=== PATIENT | male | born 1970 | race Caucasian/White ===

== ENCOUNTER 2020-01-23 16:29 | Emergency (ER) | payer SELFPAY ==
[2020-01-23 16:39] VITALS: BP 141/90; PULSE 100; RESP 16; TEMP 37.3; O2SAT 100
[2020-01-23] MEDS: AZITHROMYCIN 250 MG TABLET 1000 MG PO (17:08)
[2020-01-23] MEDS: cefTRIAXone 250 MG VIAL IM (17:09)
[2020-01-23] MEDS: LIDOCAINE HCL 1% LOCAL INJ 20 ML VIAL IM (17:09)
--- NOTE | 2020-01-23 17:26 | ED.MALEGU ---
HPI - Male Genitourinary General Chief complaint: Urogenital-Male Stated complaint: std test Time Seen by Provider: 01/23/20 16:44 Source: patient and RN notes reviewed Mode of arrival: ambulatory Limitations: no limitations History of Present Illness HPI Narrative: Patient presents today complaining of yellow/white penile discharge that he noted this morning, as well as dysuria. Denies any additional symptoms to include urgency, frequency, penile pain or swelling, scrotal pain or swelling, testicular pain or swelling. Patient has 1 female sexual partner. He had unprotected intercourse last 2 days ago. He is requesting STD testing today. He had gonorrhea diagnosed in October 2018 here at [facility], and states he contracted the gonorrhea from the same partner. MD Complaint: penile discharge Related Data Allergies Allergy/AdvReac Type Severity Reaction Status Date / Time No Known Allergies Allergy Verified 01/23/20 16:37 Review of Systems Review of Systems: Narrative: CONSTITUTIONAL: Denies body aches, fever, chills, or sweats. EYES: Denies visual changes, redness, or discharge. ENT: Denies rhinorrhea, congestion, sore throat, or otalgia. CARDIOVASCULAR: Denies chest pain, palpitations, or edema. RESPIRATORY: Denies cough or dyspnea. GASTROINTESTINAL: Denies abdominal pain, nausea, vomiting, or diarrhea. GENITOURINARY: Denies hematuria. + Dysuria, penile discharge SKIN: Denies rash, itching, or wounds. MUSCULOSKELETAL: Denies back pain, joint pain, or myalgia. NEUROLOGIC: Denies headache, numbness, tingling, or weakness. PSYCH: Denies depression or anxiety. PMFSH Comments At time of signature, I have reviewed and agree with nursing past medical, surgical, social and family history unless otherwise noted. Please see nursing chart for further information. There is no relevant family history pertinent to the presenting complaint Exam Narrative: Exam Narrative: GENERAL: Well-appearing, well-nourished, and in no acute distress. HEAD: Normocephalic, atraumatic. EYES: EOMI. No redness or drainage. Conjunctivae normal. ENT: Mucous membranes pink and moist. NECK: Normal AROM. CHEST: No respiratory distress. : Small amount of clear yellow penile discharge noted. Some irritation to the urethral meatus. Penis is otherwise normal without lesions or swelling. Scrotum and testicles are nontender without edema or lesions. EXTREMITIES: Normal range of motion. No edema. SKIN: Warm, dry, no rash. Capillary refill normal. Normal skin turgor. NEURO: No focal deficits. Alert and oriented x3. Gait steady. PSYCH: Normal affect. No signs of depression or anxiety. Course Vital Signs Vital signs: Vital Signs Temperature 99.1 F 01/23/20 16:39 Pulse Rate 100 01/23/20 16:39 Respiratory Rate 16 01/23/20 16:39 Blood Pressure 141/90 H 01/23/20 16:39 Pulse Oximetry 100 01/23/20 16:39 Temperature 99.1 F 01/23/20 16:39 Pulse Rate 100 01/23/20 16:39 Respiratory Rate 16 01/23/20 16:39 Blood Pressure 141/90 H 01/23/20 16:39 Pulse Oximetry 100 01/23/20 16:39 Reviewed. Pt has been instructed to follow up with his PCP regarding his elevated blood pressure today. MDM - Male Genitourinary Differential Diagnosis Differential diagnosis: Likely urinary tract infection, urethritis, epididymitis, prostatitis and other (Gonorrhea, chlamydia, trichomonas) Lab Data Attestation: I reviewed the patient's lab results. Labs: Urine Glucose Negative Reference Range: Negative Urine Bilirubin Negative Reference Range: Negative Urine Ketone Negative Reference Range: Negative Urine Specific [place] 1.030 Reference Range:1.001-1.035 Urine
== END 2020-01-23 17:30 | disposition home or self-care (01) ==
PROVIDERS: Emergency Provider Nurse Practitioner
DX: R36.9 Urethral discharge, unspecified (principal); Z20.2 Contact with and (suspected) exposure to infections with a predominantly sexual mode of transmission; A54.9 Gonococcal infection, unspecified
CPT/HCPCS: 81003; 87491; 87591; 87661; 96372; 99213; A9270; G0463; J0696